=== PATIENT | female | born 1950 | race African-American/Black ===

== ENCOUNTER 2018-01-11 21:22 | Emergency (ER) | payer MEDICARE ==
[~2018-01-11] VITALS: Ht 154.9 cm; Wt 49.4 kg
[~2018-01-11 21:22] MED LIST: AMARYL4 MG PO; ASPIR 8181 MG PO; ATENOLOL 100MG100 MG PO; ATORVASTATIN CA40 MG PO; BIDIL TABLET1 EACH PO; BUPROBAN150 MG PO; CIPRO500 MG PO; CIPROFLOXACIN500 M1 PO; CLONIDINE; COREG6.25 MG PO; DYAZIDE 37.5-21 EACH PO; ENALAPRIL MALEA10 M1 PO; FLAGYL500 M1 PO; FUROSEMIDE 40 M40 M1 PO; GLUCOPHAGE XR500 MG PO; INDAPAMIDE2.5 MG PO; IRON325 PO; KLOR-CON 1010 MEQ PO; LASIX 20 MG TAB20 MG PO; LASIX 40 MG TAB40 M2 PO; LISINOPRIL20 MG PO; LOVASTAT40 PO; MELOXICAM15 MG PO; MINIPRESS; MINIPRESS5 MG PO; NORCO 5-325 TA1 EACH PO; NORVASC10 MG PO; PERCOCET 5-3251 EACH PO; PREDNISONE 10 M10 M1 PO; PREDNISONE 10 M10 MG PO; PREDNISONE 5 MG5 M1 PO; PROTONIX40 M1 PO; PROZAC 10 MG CA10 MG PO; PROZAC10 MG PO; TENORMIN50 MG PO
[2018-01-11] MEDS ORDERED: AMLODIPINE BESY10 MG (21:57)
[2018-01-11] MEDS ORDERED: CLONIDINE0.1 PO (21:58)
[2018-01-11] MEDS ORDERED: HYDRALAZINE HC100 MG (21:59)
[2018-01-12 00:17] VITALS: BP 125/79
== END 2018-01-12 00:18 | disposition home or self-care (01) ==
LOC: M.ERS 21:22
DX: S00.83XA Contusion of other part of head, initial encounter (principal); I73.00 Raynaud's syndrome without gangrene; E11.9 Type 2 diabetes mellitus without complications; I11.0 Hypertensive heart disease with heart failure; I50.9 Heart failure, unspecified; G61.0 Guillain-Barre syndrome; F17.210 Nicotine dependence, cigarettes, uncomplicated; W01.190A Fall on same level from slipping, tripping and stumbling with subsequent striking against furniture, initial encounter; Y93.89 Activity, other specified; Y92.89 Other specified places as the place of occurrence of the external cause; Y99.8 Other external cause status

== ENCOUNTER 2020-08-06 13:29 | Inpatient (IN) | payer OTHER ==
[~2020-08-06] VITALS: Ht 154.9 cm; Wt 42.2 kg
[~2020-08-06 13:29] MED LIST changes: +AMLODIPINE BESY10 MG; +CARVEDILOL3.125 MG PO; +CLONIDINE0.1 PO; +HYDRALAZINE HC100 MG; -KLOR-CON 1010 MEQ PO; +KLOR-CON M2020 MEQ PO; -LISINOPRIL20 MG PO; +LISINOPRIL40 MG PO
[2020-08-06 13:38] VITALS: BP 165/78
[2020-08-06] MEDS ORDERED: FEMARA2.5 MG PO (13:58)
[2020-08-06] MEDS ORDERED: NORCO 5-325 TA1 EAC2 PO (13:59)
[2020-08-06] MEDS ORDERED: CHILDREN'S ASPI81 MG PO (13:59)
[2020-08-06 14:35] LABS: HEMATOCRIT 36.4 % (37.0-47.0); MCH 25.8 pg (26.0-34.0); MCV 78.3 fL (80.0-100.0); MPV 7.6 fl. (7.2-11.1); NUCLEATED RBCS 0 /100WBC; PLATELET COUNT* 233 thou/uL (150-400); RBC 4.65 mil/uL (4.20-5.00); RDW-CV 17.8 % (10.5-14.5); WBC 4.4 thou/uL (4.0-11.0)
[2020-08-06 14:47] LABS: CALCIUM 9.1 mg/dL (8.5-10.1); CREATININE 1.1 mg/dL (0.6-1.3); POTASSIUM 4.3 mmol/L (3.5-5.1)
[2020-08-06 14:48] LABS: PROTIME 10.7 Seconds (9.20-11.50)
[2020-08-06 14:51] LABS: ALBUMIN 3.5 g/dL (3.4-5.0); TOTAL BILIRUBIN 0.5 mg/dL (<0.1-1.0); TOTAL PROTEIN 7.5 g/dL (6.4-8.2)
[2020-08-06 15:18] LABS: ABSOLUTE EOSINOPHILS 0.1 thou/uL (0.0-0.7); ABSOLUTE LYMPHOCYTES 0.6 thou/uL (0.8-5.3); ABSOLUTE MONOCYTES 0.1 thou/uL (0.0-1.2); ABSOLUTE NEUTROPHILS 3.5 thou/uL (1.6-8.1); PLATELET ESTIMATE ADEQUATE
[2020-08-06 15:19] LABS: ANISOCYTOSIS 1+; HYPOCHROMASIA 1+; LARGE PLATELETS OCCASIONAL
[2020-08-06 15:20] LABS: MICROCYTES Occasional; OVALOCYTES Occasional; POIKILOCYTOSIS Occasional
[2020-08-06 19:48] VITALS: BP 136/64
[2020-08-06 20:30] VITALS: BP 174/71
[2020-08-06] MEDS ORDERED: CALCIUM500 MG PO (20:58)
[2020-08-06] MEDS ORDERED: VITAMIN D3-ALO1 EACH PO (21:00)
[2020-08-07 04:00] VITALS: BP 143/64
[2020-08-07 05:07] LABS: GLYCOHEMOGLOBIN (HGB A1C) 4.8 % (4.8-5.6)
[2020-08-07 05:47] LABS: CHOLESTEROL 137 mg/dL (<200); HDL CHOLESTEROL 70 mg/dL (>40); LDL CHOLESTEROL 59 mg/dL (<100); TRIGLYCERIDE 43 mg/dL (<150); VLDL 9 mg/dL (<40)
[2020-08-07 06:08] LABS: SERUM ASSESSMENT CLEAR
[2020-08-07 08:15] VITALS: BP 157/80
[2020-08-07 09:38] LABS: URINE BILIRUBIN NEGATIVE (Negative); URINE BLOOD TRACE (Negative); URINE CLARITY CLEAR; URINE COLOR YELLOW; URINE GLUCOSE-RANDOM NEGATIVE (Negative); URINE KETONES NEGATIVE (Negative); URINE LEUKOCYTES-REFLEX NEGATIVE (Negative); URINE NITRITE-REFLEX NEGATIVE (Negative); URINE PROTEIN 2+ (Negative); URINE SPECIFIC GRAVITY >= 1.030 (1.005-1.030)
[2020-08-07 09:59] LABS: SQUAMOUS >10 Many /LPF (0-3)
[2020-08-07 10:00] LABS: CASTS None Seen /LPF (None Seen); CRYSTALS None Seen /LPF (None Seen); MUCUS >6 Heavy strn/LPF (None Seen); URINE RBC 0-2 Rare /HPF (0-2); URINE WBC-REFLEX 0-5 Rare /HPF (0-5)
[2020-08-07 10:01] LABS: AMORPHOUS URATES Few /LPF (None Seen); BACTERIA-REFLEX 1-9 Few /HPF (None Seen)
[2020-08-07 12:31] VITALS: BP 166/87
[2020-08-07 15:59] VITALS: BP 127/73
[2020-08-07 20:00] VITALS: BP 133/78
[2020-08-08 00:20] VITALS: BP 140/67
[2020-08-08 04:37] VITALS: BP 152/77
[2020-08-08 08:30] VITALS: BP 159/75
[2020-08-08 12:38] VITALS: BP 148/83
[2020-08-08 15:53] VITALS: BP 142/80
[2020-08-08 20:00] VITALS: BP 126/70
[2020-08-09] VITALS: BP 118/58
[2020-08-09 04:00] VITALS: BP 130/69
[2020-08-09 08:00] VITALS: BP 149/76
[2020-08-09] MEDS ORDERED: ASA81BEC PO (09:41)
[2020-08-09] MEDS ORDERED: CEFUROXIME250 MG PO (09:41)
[2020-08-09] MEDS ORDERED: FOLIC ACID1 MG PO (09:41)
[2020-08-09 12:41] VITALS: BP 128/64
[2020-08-09 12:52] VITALS: BP 128/64
--- NOTE | 2020-08-09 17:39 | EKG ---
[place] [address] ELECTROCARDIOGRAM REPORT Name: PAYTON SAMANO Room: [address] IN M.R.#: [id number] Admission: 08/06/20 Attend Phys: Dayanna Reynolds, Discharge: 08/09/20 Date of : 46 Date of Service: 08/06/20 1430 Report #: [id number] THIS REPORT FOR: //name// [facility] ED Test Date: 2020-08-06 Test Time: 14:30:11 Pat Name: PAYTON SAMANO Department: Room: [facility] Gender: F Senior Web Developer: PANCHO : 1950 Requested By: Francisco Camejo Order Number: [id number] MD: Heriberto Tam Measurements Intervals [place] Rate: 67 P: 43 WI: 146 QRS: -21 QRSD: 140 T: 166 QT: 437 QTc: 462 Interpretive Statements Sinus rhythm Left bundle branch block Compared to ECG 02/25/2016 18:40:20 No significant changes Electronically Signed On 08-09-2020 17:39:10 CDT by Heriberto Tam [email or web address] <ELECTRONICALLY SIGNED> By: Heriberto Tam MD, FACC 08/09/20 1739 1430 1430 Heriberto Tam MD, FAC /EPI
== END 2020-08-09 14:20 | disposition home health service (06) | DRG 689 ==
LOC: M.ERS 13:29 → M.2W 15:06 → M.TBA-ER 15:06 → M.2W 20:26
PROVIDERS: Emergency Medicine Emergency Medical Services; ADMIT Internal Medicine; ATTEND Internal Medicine
DX: N39.0 Urinary tract infection, site not specified (principal); G92 Toxic encephalopathy; C79.81 Secondary malignant neoplasm of breast; E44.1 Mild protein-calorie malnutrition; Z68.1 Body mass index [BMI] 19.9 or less, adult; F03.90 Unspecified dementia, unspecified severity, without behavioral disturbance, psychotic disturbance, mood disturbance, and anxiety; B96.89 Other specified bacterial agents as the cause of diseases classified elsewhere; G89.29 Other chronic pain; I50.9 Heart failure, unspecified; I11.0 Hypertensive heart disease with heart failure; E11.9 Type 2 diabetes mellitus without complications; Z98.42 Cataract extraction status, left eye; Z98.41 Cataract extraction status, right eye; Z86.73 Personal history of transient ischemic attack (TIA), and cerebral infarction without residual deficits; Z90.49 Acquired absence of other specified parts of digestive tract; Z85.3 Personal history of malignant neoplasm of breast; Z90.12 Acquired absence of left breast and nipple; Z87.891 Personal history of nicotine dependence; Z79.899 Other long term (current) drug therapy; Z20.828 Contact with and (suspected) exposure to other viral communicable diseases

== ENCOUNTER 2020-12-22 03:49 | Inpatient (IN) | payer OTHER ==
[~2020-12-22] VITALS: Ht 154.9 cm; Wt 92.4 kg
--- NOTE | ~2020-12-22 | CON ---
[address] [address] CONSULTATION Name: PAYTON SAMANO Room: [address] IN M.R.#: [id number] Admission: 12/22/20 Attend Phys: Ana M Farrell MD Discharge: Date of : 46 Report #: [id number] THIS REPORT FOR: cc: NATO BANUELOS MD, CHADWICK MD ~ Gary Limon MD DATE OF SERVICE: 12/22/2020 HISTORY OF PRESENT ILLNESS: This is a 70-year-old female patient who was evaluated by me for altered mental status as well as the possibility of seizure. The patient is unable to provide any history. I reviewed the patient's records in the computer. Subsequently, I was able to talk to the patient's daughter. It looks like they saw the patient stiffen up. They also thought the patient had a seizure at that time. She was brought to Emergency Room. REVIEW OF SYSTEMS: A 14-point review of system was carried out from the family. She has a history of renal disease, hypertension, cataracts, diet-controlled diabetes, colectomy, bunionectomy, Guillain-Chalmers syndrome, CVA, metastatic breast cancer, left mastectomy. She is on multiple medications. She has advanced dementia. She usually does not know month or the year. Because of that, it is difficult to tell about her vision, any ENT, chest pain, respiratory difficulty, but she was agitated. She was not complaining of any bladder symptoms. She is not complaining of any musculoskeletal symptoms, but she barely talks. I do not know about the psychiatric issues. This is all the 14-point review of system I could get. PAST MEDICAL HISTORY: Positive for what looks like severe dementia. FAMILY HISTORY: Unremarkable. SOCIAL HISTORY: She does have family and I talked to the patient's daughter. PHYSICAL EXAMINATION: Attempted, is very limited. She just says a few words. When I say how are you, she says okay, but when I asked her what month or what day it is, she is not able to tell me. She does have some speech. Cranial nerve examination 2-12 was attempted. It was almost impossible to carry out. I do not see any gross abnormality, but even extraocular muscle examination is difficult to tell. I cannot tell about motor strength either. She did not move the left arm for me. She did move the right arm, both legs she move very little. I am not sure how long it is going on. I tried to do the sensation looks like she can feel the pain. Tone looks somewhat increased in generalized fashion. Reflexes are diminished in generalized fashion. There is no meningeal sign. She does not cooperate with the fundus examination. Cardiac examination is noncontributory. No respiratory difficulty was noticed. [place] [address] CONSULTATION Name: PAYTON SAMANO Room: [address] IN M.R.#: [id number] Admission: 12/22/20 Attend Phys: Ana M Farrell MD Discharge: Date of : 46 Report #: [id number] was noted either. She does not have edema, cyanosis or jaundice. It looks like she can hear. Vital signs indicated blood pressure 173/91, pulse is 65, temperature is 97.7. LABORATORY DATA: Her WBC count is 5.1. Head CT is markedly compromised, but she does have prior histories of strokes and in fact she also has a history of hemorrhoids. IMPRESSION: This patient's EEG demonstrates seizure activity. This patient has dementia. She is on Wellbutrin, which can induce seizure and she does have a significant metabolic problems as I understand when she came in, like increased creatinine from the baseline. But in any event, this patient is predisposed to have a seizure, she should be on anticonvulsant indefinitely. I have talked to her daughter in great detail and I discussed with her the option that we can be aggressive in the workup or we can be conservative. They want to be conservative and do not want to do further testing like LP, etc. That is reasonable in this patient. I will suggest continue Keppra indefinitely and call if there are any further issues in this patient. Her B12 and TSH are already checked and that were unremarkable. Thank you very much for this referral. By: 24 [id number] Limon MD /nt
--- NOTE | ~2020-12-22 | EEG ---
[place] [address] EEG STUDY REPORT Name: PAYTON SAMANO Room: [address] IN M.R.#: [id number] Admission: 12/22/20 Attend Phys: Ana M Farrell MD Discharge: Date of : 46 Report #: [id number] THIS REPORT FOR: cc: NATO BANUELOS MD, CHADWICK MD ~ Gary Limon MD DATE OF SERVICE: 12/22/2020 This patient is being evaluated for altered mental status. EEG was done by placing the electrode by standard 10-20 system of electrode placement. Both referential and sequential montages were used for recording. Background activity is poorly formed and low voltage, but appeared to be about 5 Hz and 10 microvolt. The patient had a frontally predominant spike and slow wave activity, which became an episode. Photic stimulation is unremarkable. IMPRESSION: This is a severely abnormal electroencephalogram because it is disorganized and poorly formed. That can occur with encephalopathy, effect of psychotropic medication, dementia, etc. In addition, the patient has epileptiform activity arising from the frontotemporal area. Clinical correlation is recommended. By: [id number] Limon MD /nt
[~2020-12-22 03:49] MED LIST changes: +ASA81BEC PO; -BUPROBAN150 MG PO; +BUPROPION HCL150 MG PO; +CALCIUM500 MG PO; +CEFUROXIME250 MG PO; +CHILDREN'S ASPI81 MG PO; +FEMARA2.5 MG PO; +FOLIC ACID1 MG PO; +NORCO 5-325 TA1 EAC2 PO; +VITAMIN D3-ALO1 EACH PO
[2020-12-22 03:55] VITALS: BP 187/111
[2020-12-22 04:31] LABS: URINE BILIRUBIN NEGATIVE (Negative); URINE BLOOD TRACE (Negative); URINE CLARITY CLEAR; URINE COLOR YELLOW; URINE GLUCOSE-RANDOM NEGATIVE (Negative); URINE KETONES NEGATIVE (Negative); URINE LEUKOCYTES-REFLEX NEGATIVE (Negative); URINE NITRITE-REFLEX NEGATIVE (Negative); URINE PROTEIN 2+ (Negative); URINE SPECIFIC GRAVITY 1.025 (1.005-1.030); URINE UROBILINOGEN 0.2 E.U./dl (0.2-1.0)
[2020-12-22 04:56] LABS: HEMATOCRIT 36.3 % (37.0-47.0); HEMOGLOBIN 11.7 gm/dL (12.0-15.0); MCHC 32.3 g/dL (28.0-37.0); MCV 77.5 fL (80.0-100.0); MPV 8.2 fl. (7.2-11.1); NUCLEATED RBCS 0 /100WBC; PLATELET COUNT* 222 thou/uL (150-400); RBC 4.69 mil/uL (4.20-5.00); RDW-CV 17.3 % (10.5-14.5); WBC 5.1 thou/uL (4.0-11.0)
[2020-12-22] MEDS ORDERED: ASA81BEC PO (04:56)
[2020-12-22] MEDS ORDERED: NORVASC 2.5 MG2.5 M1 PO (04:56)
[2020-12-22] MEDS ORDERED: LIPITOR 20 MG T20 M1 PO (04:56)
[2020-12-22 04:57] LABS: HYALINE CASTS 0-3 Few /LPF (None Seen); SQUAMOUS 0-3 Few /LPF (0-3)
[2020-12-22] MEDS ORDERED: BUPROPION XL300 MG PO (04:57)
[2020-12-22] MEDS ORDERED: CALCIUM PO (04:58)
[2020-12-22] MEDS ORDERED: VITAMIN PO (04:58)
[2020-12-22] MEDS ORDERED: CARVEDILOL12.5 MG PO (04:59)
[2020-12-22] MEDS ORDERED: IRON325 PO (04:59)
[2020-12-22 05:00] LABS: BACTERIA-REFLEX None Seen /HPF (None Seen); URINE RBC 3-10 Few /HPF (0-2); URINE WBC-REFLEX 0-5 Rare /HPF (0-5)
[2020-12-22] MEDS ORDERED: FOLIC ACID1 MG PO (05:00)
[2020-12-22 05:01] LABS: CRYSTALS None Seen /LPF (None Seen); TRANSITIONAL EPITHEL CELL 0-3 Few /LPF (None Seen)
[2020-12-22] MEDS ORDERED: NORCO 10-325 T1 EACH PO (05:01)
[2020-12-22] MEDS ORDERED: FEMARA2.5 MG PO (05:01)
[2020-12-22] MEDS ORDERED: LISINOPRIL20 MG PO (05:02)
[2020-12-22] MEDS ORDERED: VITAMIN D250 MC1 PO (05:02)
[2020-12-22] MEDS ORDERED: EFFER-K 20 MEQ20 ME1 PO (05:02)
[2020-12-22 05:11] LABS: CALCIUM 9.8 mg/dL (8.5-10.1); CREATININE 1.4 mg/dL (0.6-1.3); POTASSIUM 3.9 mmol/L (3.5-5.1)
[2020-12-22 05:13] LABS: PROTIME 10.7 Seconds (9.20-11.50)
[2020-12-22 05:21] LABS: ALBUMIN 3.3 g/dL (3.4-5.0); TOTAL BILIRUBIN 0.5 mg/dL (<0.1-1.0); TOTAL PROTEIN 6.9 g/dL (6.4-8.2)
[2020-12-22 05:54] LABS: ABSOLUTE LYMPHOCYTES 0.5 thou/uL (0.8-5.3); ABSOLUTE MONOCYTES 0.1 thou/uL (0.0-1.2); ABSOLUTE NEUTROPHILS 4.5 thou/uL (1.6-8.1); ANISOCYTOSIS 1+; OVALOCYTES 1+; PLATELET ESTIMATE ADEQUATE; POIKILOCYTOSIS 1+
[2020-12-22 09:31] VITALS: BP 159/71
--- NOTE | 2020-12-22 11:53 | EKG ---
[place] [address] ELECTROCARDIOGRAM REPORT Name: PAYTON SAMANO Room: [address] ADM IN M.R.#: [id number] Admission: 12/22/20 Attend Phys: Ana M Farrell MD Discharge: Date of : 46 Date of Service: 12/22/20 0514 Report #: [id number] THIS REPORT FOR: //name// [facility] ED Test Date: 2020-12-22 Test Time: 05:14:48 Pat Name: PAYTON SAMANO Department: Room: [facility] Gender: F Mobile Application Engineer: ANDERSON : 1950 Requested By: Vanessa Holguin Order Number: [id number] MD: Wayne Eason Measurements Intervals [place] Rate: 88 P: 22 ID: 145 QRS: 24 QRSD: 141 T: 197 QT: 402 QTc: 487 Interpretive Statements Sinus rhythm Left bundle branch block Baseline wander in lead(s) I,II,aVR,aVF,V2,V5 Compared to ECG 08/06/2020 14:30:11 No significant changes Electronically Signed On 12-22-2020 11:53:43 ETHNOARCHAEOLOGIST by Wayne Eason [email or web address] <ELECTRONICALLY SIGNED> By: Wayne Eason MD, [facility] 12/22/20 1153 3 3 Wayne Eason MD, [facility] /EPI
[2020-12-22] MEDS ORDERED: ZOMETA 4 MG4 MG/5 M1 IV PUSH (15:29)
[2020-12-22] MEDS ORDERED: FASLODEX250 MG/5 M IM (15:30)
[2020-12-22 15:33] VITALS: BP 172/84
[2020-12-22 17:34] VITALS: BP 173/91
[2020-12-22 23:40] VITALS: BP 154/87
[2020-12-23] VITALS (7 sets, daily range): BP systolic 111–174; BP diastolic 63–98
[2020-12-23 04:39] LABS: CALCIUM 8.7 mg/dL (8.5-10.1); CREATININE 1.5 mg/dL (0.6-1.3); MAGNESIUM 2.1 mg/dL (1.8-2.4)
[2020-12-23] MEDS ORDERED: KEPPRA 500 MG500 M1 PO (08:49)
== END 2020-12-23 19:30 | disposition home health service (06) | DRG 100 ==
LOC: M.ERS 03:49 → M.TBA-ER 05:54 → M.2W 07:51 → M.TBA-ER 07:51 → M.2W 09:31
PROVIDERS: Internal Medicine; Personal Emergency Response Attendant; ADMIT Family Medicine; ATTEND Family Medicine
DX: G40.89 Other seizures (principal); N17.0 Acute kidney failure with tubular necrosis; G92 Toxic encephalopathy; E44.1 Mild protein-calorie malnutrition; I13.0 Hypertensive heart and chronic kidney disease with heart failure and stage 1 through stage 4 chronic kidney disease, or unspecified chronic kidney disease; I50.9 Heart failure, unspecified; G89.29 Other chronic pain; I16.0 Hypertensive urgency; N18.30 Chronic kidney disease, stage 3 unspecified; E11.22 Type 2 diabetes mellitus with diabetic chronic kidney disease; Z20.822 Contact with and (suspected) exposure to COVID-19; Z98.42 Cataract extraction status, left eye; Z98.41 Cataract extraction status, right eye; Z90.49 Acquired absence of other specified parts of digestive tract; Z86.73 Personal history of transient ischemic attack (TIA), and cerebral infarction without residual deficits; Z85.3 Personal history of malignant neoplasm of breast; Z90.12 Acquired absence of left breast and nipple; Z87.891 Personal history of nicotine dependence; Z68.38 Body mass index [BMI] 38.0-38.9, adult

== ENCOUNTER 2021-03-02 23:01 | Observation (INO) | payer OTHER ==
[~2021-03-02] VITALS: Ht 154.9 cm; Wt 40.9 kg
[~2021-03-02 23:01] MED LIST changes: +BUPROPION XL300 MG PO; +CALCIUM PO; +CARVEDILOL12.5 MG PO; +EFFER-K 20 MEQ20 ME1 PO; +FASLODEX250 MG/5 M IM; +KEPPRA 500 MG500 M1 PO; +LIPITOR 20 MG T20 M1 PO; +LISINOPRIL20 MG PO; +NORCO 10-325 T1 EACH PO; +NORVASC 2.5 MG2.5 M1 PO; +VITAMIN D250 MC1 PO; +VITAMIN PO; +ZOMETA 4 MG4 MG/5 M1 IV PUSH
[2021-03-02 23:32] VITALS: BP 160/93
[2021-03-03 00:53] LABS: HEMATOCRIT 34.7 % (37.0-47.0); MCHC 31.6 g/dL (28.0-37.0); MPV 7.8 fl. (7.2-11.1); NUCLEATED RBCS 0 /100WBC; PLATELET COUNT* 296 thou/uL (150-400); RBC 4.57 mil/uL (4.20-5.00); RDW-CV 18.3 % (10.5-14.5); WBC 6.8 thou/uL (4.0-11.0)
[2021-03-03 01:12] LABS: CALCIUM 10.1 mg/dL (8.5-10.1)
[2021-03-03 01:16] LABS: TOTAL BILIRUBIN 0.6 mg/dL (<0.1-1.0); TOTAL PROTEIN 8.6 g/dL (6.4-8.2)
[2021-03-03 01:19] LABS: POTASSIUM 2.9 mmol/L (3.5-5.1)
[2021-03-03 03:40] LABS: URINE BILIRUBIN NEGATIVE (Negative); URINE BLOOD TRACE (Negative); URINE CLARITY CLEAR; URINE COLOR YELLOW; URINE GLUCOSE-RANDOM NEGATIVE (Negative); URINE KETONES NEGATIVE (Negative); URINE LEUKOCYTES-REFLEX NEGATIVE (Negative); URINE NITRITE-REFLEX NEGATIVE (Negative); URINE PROTEIN 1+ (Negative); URINE UROBILINOGEN 0.2 E.U./dl (0.2-1.0)
[2021-03-03 03:51] LABS: MAGNESIUM 1.9 mg/dL (1.8-2.4); PHOSPHORUS* 3.2 mg/dL (2.5-4.9)
[2021-03-03 05:30] VITALS: BP 146/64
[2021-03-03 06:00] VITALS: BP 169/87
[2021-03-03 06:01] LABS: ABSOLUTE BASOPHILS 0.1 thou/uL (0.0-0.2); ABSOLUTE EOSINOPHILS 0.1 thou/uL (0.0-0.7); ABSOLUTE LYMPHOCYTES 0.9 thou/uL (0.8-5.3); ABSOLUTE MONOCYTES 0.3 thou/uL (0.0-1.2); ABSOLUTE NEUTROPHILS 5.4 thou/uL (1.6-8.1); EOSINOPHILS 1.7 %; LYMPHOCYTES 13.3 %; MONOCYTES 4.9 %; POLYS 79.1 %
[2021-03-03 07:30] VITALS: BP 157/82
[2021-03-03 11:15] VITALS: BP 158/81
[2021-03-03 16:49] VITALS: BP 171/74
[2021-03-03 20:00] VITALS: BP 156/81
[2021-03-04 08:00] VITALS: BP 147/77
[2021-03-04 08:48] LABS: ABSOLUTE BASOPHILS 0.1 thou/uL (0.0-0.2); ABSOLUTE EOSINOPHILS 0.1 thou/uL (0.0-0.7); ABSOLUTE LYMPHOCYTES 0.8 thou/uL (0.8-5.3); ABSOLUTE MONOCYTES 0.2 thou/uL (0.0-1.2); ABSOLUTE NEUTROPHILS 3.1 thou/uL (1.6-8.1); BASOPHILS 1.3 %; EOSINOPHILS 1.7 %; HEMATOCRIT 28.9 % (37.0-47.0); HEMOGLOBIN 9.2 gm/dL (12.0-15.0); LYMPHOCYTES 19.7 %; MCHC 31.8 g/dL (28.0-37.0); MCV 75.5 fL (80.0-100.0); MONOCYTES 3.9 %; MPV 7.8 fl. (7.2-11.1); NUCLEATED RBCS 0 /100WBC; PLATELET COUNT* 279 thou/uL (150-400); POLYS 73.4 %; RBC 3.83 mil/uL (4.20-5.00); RDW-CV 17.7 % (10.5-14.5); WBC 4.2 thou/uL (4.0-11.0)
[2021-03-04 08:50] LABS: CALCIUM 8.5 mg/dL (8.5-10.1); CREATININE 1.1 mg/dL (0.6-1.3); POTASSIUM 4.3 mmol/L (3.5-5.1)
[2021-03-04 10:00] VITALS: BP 156/81
[2021-03-04 10:41] VITALS: BP 156/81
[2021-03-04 11:29] VITALS: BP 156/81
== END 2021-03-04 13:10 | disposition home or self-care (01) ==
LOC: M.ERS 23:01 → M.TBA-ER 03-03 03:50 → M.2W 03-03 03:50
PROVIDERS: Personal Emergency Response Attendant; ADMIT Internal Medicine; ATTEND Internal Medicine
DX: R10.9 Unspecified abdominal pain (principal); Z20.822 Contact with and (suspected) exposure to COVID-19; K59.00 Constipation, unspecified; E87.6 Hypokalemia; F03.90 Unspecified dementia, unspecified severity, without behavioral disturbance, psychotic disturbance, mood disturbance, and anxiety; G40.909 Epilepsy, unspecified, not intractable, without status epilepticus; I11.0 Hypertensive heart disease with heart failure; I50.9 Heart failure, unspecified; C50.912 Malignant neoplasm of unspecified site of left female breast; Z87.891 Personal history of nicotine dependence; Z79.899 Other long term (current) drug therapy